=== PATIENT | male | born 1950 | race Caucasian/White ===

== ENCOUNTER 2019-03-16 13:54 | Emergency (ER) | payer MEDICARE, BC ==
--- NOTE | 2019-03-16 14:01 | ER Document Report ---
ED Medical Screen (RME) - General Chief Complaint: General Weakness Stated Complaint: POSSIBLE STROKE Time Seen by Provider: 03/16/19 13:58 Mode of Arrival: Ambulatory Information source: Patient, Relative Notes: 68-year-old male presents to ED for complaint of weakness neurological changes and confusion for the past week. states that he called her at work and told her that he had no use of his right hand he was weak and shaking. He does have shaking to his right hand. He does not have any palmar drift, he is alert and oriented, he does not have any facial droop. He does have some short-term memory but states this is not new. She states that all the symptoms started Friday night and is gotten progressively worse. According to the told her today that it is been going on longer than that. I have greeted and performed a rapid initial assessment of this patient. A comprehensive ED assessment and evaluation of the patient, analysis of test results and completion of medical decision making process will be conducted by an additional ED providers. - Related Data Allergies/Adverse Reactions: No Known Allergies Allergy (Verified 03/16/19 13:57)
--- NOTE | 2019-03-16 14:39 | ER Document Report ---
ED General - General Chief Complaint: General Weakness Stated Complaint: POSSIBLE STROKE Time Seen by Provider: 03/16/19 13:58 Primary Care Provider: ERIN DE PAZ MD [Primary Care Provider] - Follow up tomorrow Mode of Arrival: Ambulatory Notes: Called to room for possible stroke 68-year-old male with a history of hypertension hyperlipidemia presents with right arm weakness. First noticed this morning at about 1030 and got worse when he was trying to make breakfast and could not get the spoon to his mouth. Also had some shaking in the right arm. He also had some right cheek numbness at that time and says it is improved over the last hour. Per his this may be happening all week and is just not telling it. No speech problems memory issues or confusion no fever or UTI symptoms. - Related Data Allergies/Adverse Reactions: No Known Allergies Allergy (Verified 03/16/19 13:57) Past Medical History - General Information source: Patient, Relative - Social History Smoking Status: Never Smoker Drug Abuse: None Family History: None Patient has suicidal ideation: No Patient has homicidal ideation: No Physical Exam - Vital signs Vitals: Pulse Resp BP Pulse Ox 89 20 180/75 H 100 03/16/19 14:01 03/16/19 14:01 03/16/19 14:01 03/16/19 14:01 Course - Re-evaluation Re-evalutation: 03/16/19 18:42 Patient presents with transient right arm weakness going on for a few days as well as new tremor. His neuro exam in the ER is normal with no lateralizing deficits and he does have a tremor CT negative labs negative No A. fib on EKG Discussed with Dr. Gibson for admissionDr. 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 Thompson as of 640 says they are negative will recommend discharge I will attempt to refer the patient to neurology. I have discussed with the patient there likely diagnosis, aftercare plan, follow-up plans and my usual and customary return precautions. They verbalized understanding of this. - Vital Signs Vital signs: Temp Pulse Resp BP Pulse Ox 98.2 F 76 18 134/88 H 98 03/16/19 19:51 03/16/19 19:51 03/16/19 19:51 03/16/19 19:51 03/16/19 18:01 - Laboratory Result Diagrams: 03/16/19 14:35 03/16/19 14:35 Laboratory results interpreted by me: 03/16/19 03/16/19 03/16/19 14:35 14:35 14:45 Lymph % (Auto) 9.1 L Seg Neutrophils % 82.9 H Sodium 136.0 L Chloride 97 L BUN 25 H Glucose 121 H POC Glucose 129 H - Diagnostic Test Radiology reviewed: Image reviewed, Reports reviewed Discharge - Discharge Clinical Impression: Transient ischemic attack (TIA), Tremor Condition: Good Disposition: HOME, SELF-CARE Unit Admitted: Post Additional Instructions: Your evaluated in the emergency room today for stroke tremor weakness and TIA. We think her presentation is most concerning for a movement disorder like Parkinson's rather than stroke, and your ultrasounds CAT scans and labs were normal. If your tremor worsens or you get any 1sided neurologic symptoms please return to the ER immediately. Follow-up with your doctor tomorrow as scheduled and ask for referral to neurology. Referrals: ERIN DE PAZ MD [Primary Care Provider] - Follow up tomorrow
[2019-03-16 14:57] LABS: PROTHROMBIN TIME 13.1 SEC (11.4-15.4)
[2019-03-16 14:58] LABS: PARTIAL THROMBOPLASTIN TIME 26.6 SEC (23.5-35.8)
[2019-03-16 15:04] LABS: ABSOLUTE LYMPHOCYTES (AUTO) 0.8 10^3/uL (0.5-4.7); ABSOLUTE MONOCYTES (AUTO) 0.6 10^3/uL (0.1-1.4); ABSOLUTE NEUT (AUTO) 7.1 10^3/uL (1.7-8.2); BASOPHILS % (AUTO) 0.4 % (0-2); EOSINOPHILS % (AUTO) 0.5 % (0-6); HEMATOCRIT 41.5 % (37.9-51.0); HEMOGLOBIN 14.9 g/dL (13.5-17.0); LYMPHOCYTES % (AUTO) 9.1 % (13-45); MEAN CORPUSCULAR HEMOGLOBIN 32.7 pg (27.0-33.4); MEAN CORPUSCULAR HGB CONC 35.8 g/dL (32.0-36.0); MEAN CORPUSCULAR VOLUME 92 fl (80-97); MONOCYTES % (AUTO) 7.1 % (3-13); PLATELET COUNT 246 10^3/uL (150-450); RED BLOOD COUNT 4.54 10^6/uL (4.35-5.55); RED CELL DISTRIBUTION WIDTH 11.9 % (11.5-14.0); SEGMENTED NEUTROPHILS % (AUTO) 82.9 % (42-78); TOTAL CELLS COUNTED % (AUTO) 100 %; WHITE BLOOD COUNT 8.6 10^3/uL (4.0-10.5)
--- NOTE | 2019-03-16 15:07 | RADIOLOGY REPORT (SQ) ---
EXAM DESCRIPTION: CT HEAD WITHOUT COMPLETED DATE/TIME: 03/16/2019 2:58 pm REASON FOR STUDY: Neurological changes since Friday weakness COMPARISON: None. TECHNIQUE: Axial images acquired through the brain without intravenous contrast. Images reviewed wi th bone, brain and subdural windows. Additional sagittal and coronal reconstructions were generated. Images stored on PACS. All CT scanners at this facility use dose modulation, iterative reconstruction, and/or weight based d osing when appropriate to reduce radiation dose to as low as reasonably achievable (ALARA). [facility]: Dose Right [facility]: CareDose [facility]: Dose Right [facility]: Teradose 4D [facility]: [employer] RADIATION DOSE: CT Rad equipment meets quality standard of care and radiation dose reduction techniq ues were employed. CTDIvol: 53.2 mGy. DLP: 1124 mGy-cm. mGy. LIMITATIONS: None. FINDINGS: VENTRICLES: Normal size and contour. CEREBRUM: No masses. No hemorrhage. No midline shift. No evidence for acute infarction. Normal gra y/white matter differentiation. No areas of low density in the white matter. CEREBELLUM: No masses. No hemorrhage. No alteration of density. No evidence for acute infarction. EXTRAAXIAL SPACES: No fluid collections. No masses. ORBITS AND GLOBE: No intra- or extraconal masses. Normal contour of globe without masses. CALVARIUM: No fracture. PARANASAL SINUSES: No fluid or mucosal thickening. SOFT TISSUES: No mass or hematoma. OTHER: No other significant finding. IMPRESSION: NORMAL BRAIN CT WITHOUT CONTRAST. EVIDENCE OF ACUTE STROKE: NO. COMMENT: Quality ID # [id number]: Final reports with documentation of one or more dose reduction techniques (e.g., Automated exposure control, adjustment of the mA and/or kV according to patient size, use of iterative reconstruction technique) TECHNICAL DOCUMENTATION: JOB ID: [id number] [employer]- All Rights Reserved Reading location - IP/workstation name: [email or web address]
[2019-03-16 15:11] LABS: ALBUMIN 4.5 g/dL (3.5-5.0); ALKALINE PHOSPHATASE 77 U/L (38-126); ANION GAP 11 (5-19); ASPARTATE AMINO TRANSFERASE 25 U/L (17-59); BILIRUBIN,DIRECT 0.4 mg/dL (0.0-0.4); BILIRUBIN,TOTAL 0.8 mg/dL (0.2-1.3); BLOOD UREA NITROGEN 25 mg/dL (7-20); CALCIUM 9.9 mg/dL (8.4-10.2); CARBON DIOXIDE 28 mmol/L (22-30); CHLORIDE 97 mmol/L (98-107); CREATINE KINASE 108 U/L (55-170); GLUCOSE 121 mg/dL (75-110); POTASSIUM 4.1 mmol/L (3.6-5.0); TOTAL PROTEIN 7.4 g/dL (6.3-8.2)
--- NOTE | 2019-03-16 15:20 | RADIOLOGY REPORT (SQ) ---
EXAM DESCRIPTION: CHEST SINGLE VIEW COMPLETED DATE/TIME: 03/16/2019 2:59 pm REASON FOR STUDY: Neurological changes since Friday weakness COMPARISON: None. NUMBER OF VIEWS: One view. TECHNIQUE: Single frontal radiographic view of the chest acquired. LIMITATIONS: None. FINDINGS: LUNGS AND PLEURA: No opacities, masses or pneumothorax. No pleural effusion. MEDIASTINUM AND HILAR STRUCTURES: No masses. Contour normal. HEART AND VASCULAR STRUCTURES: Heart normal in size. Normal vasculature. BONES: No acute findings. HARDWARE: None in the chest. OTHER: No other significant finding. IMPRESSION: NO SIGNIFICANT RADIOGRAPHIC FINDING IN THE CHEST. TECHNICAL DOCUMENTATION: JOB ID: [id number] [employer]- All Rights Reserved Reading location - IP/workstation name: [email or web address]
[2019-03-16 15:23] LABS: CREATINE KINASE MB 1.29 ng/mL (<4.55); TROPONIN I < 0.012 ng/mL
--- NOTE | 2019-03-16 17:04 | PDOC CONSULTATION ---
Consultation Consult Date: 03/16/19 Attending physician:: TAMAR SHIELDS Provider Consulted: QUANG GOTTI Consult reason:: ? 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 Patient stated that his episodes started last month. acknowledges that patient has had recurrent episodes on Friday, Friday and today again. These episodes have lasted only a few minutes but in this situation lasted about 10 to 15 minutes. At that time, patient was holding a spoon in his hand when he started to have rhythmic tremors with sudden weakness of it service technician strength. Patient denies any other neurological symptoms at that time. Symptoms are currently resolved. Of note he has had several episodes over the past month but none prior to January. Endorses family history of tremors in his mother and his grandfather. Patient and patient's also note that patient has been exhibit ing increased sluggishness in his walking and gait as well as mild forgetfulness since last summer. Patient states he walks slowly to prevent himself from falling. Patient denies any prior history of strokes or TIAs. Past Medical History Cardiac Medical History: Reports: Hyperlipidema, Hypertension Past Surgical History Past Surgical History: Reports: None Social History Information Source: Patient Lives with: Spouse/Significant other Smoking Status: Never Smoker Electronic Cigarette use?: No Frequency of Alcohol Use: None Hx Recreational Drug Use: No Family History Family History: Other Family History: Malignancy, tremors in grandfather and mother, seizures Parental Family History Reviewed: Yes Children Family History Reviewed: NA Sibling(s) Family History Reviewed.: Yes Medication/Allergy Home Medications: Benazepril HCl [Lotensin 10 mg Tablet] 10 mg PO QPM 03/16/19 Pravastatin Sodium 10 mg PO QPM 03/16/19 Allergies/Adverse Reactions: No Known Allergies Allergy (Verified 03/16/19 13:57) Review of Systems Constitutional: ABSENT: fatigue, fever(s), night sweats Eyes: ABSENT: visual disturbances Nose, Mouth, and Throat: ABSENT: vertigo Cardiovascular: ABSENT: chest pain Respiratory: ABSENT: dyspnea Gastrointestinal: ABSENT: abdominal pain Genitourinary: PRESENT: nocturia. ABSENT: difficulty urinating Musculoskeletal: ABSENT: back pain, joint swelling, muscle weakness Integumentary: ABSENT: diaphoresis Neurological: PRESENT: abnormal gait - Sluggish, abnormal movements, memory loss, tremor(s). ABSENT: abnormal speech, confusion, convulsions, dizziness, numbness, paresthesias, tingling, vertigo, weakness Psychiatric: ABSENT: anxiety Endocrine: ABSENT: cold intolerance Physical Exam Vital Signs: Temp Pulse Resp BP Pulse Ox 97.7 F 88 18 174/78 H 98 03/16/19 14:09 03/16/19 14:09 03/16/19 14:09 03/16/19 14:09 03/16/19 14:09 Intake & Output 03/15/19 03/16/19 03/17/19 06:59 06:59 06:59 Weight 72.2 kg General appearance: PRESENT: no acute distress, cooperative Head exam: PRESENT: normocephalic Eye exam: PRESENT: EOMI, PERRLA. ABSENT: nystagmus, scleral icterus Neck exam: ABSENT: JVD Respiratory exam: PRESENT: clear to auscultation addi, unlabored. ABSENT: tachypnea, wheezes Cardiovascular exam: PRESENT: RRR, +S1, +S2. ABSENT: tachycardia Vascular exam: ABSENT: pallor GI/Abdominal exam: PRESENT: soft. ABSENT: rebound, rigid, tenderness Extremities exam: ABSENT: calf tenderness, pedal edema Musculoskeletal exam: PRESENT: ambulatory Neurological exam: PRESENT: alert, awake, oriented to person, oriented to place, oriented to time, oriented to situation, abnormal gait - Sluggish gait and mildly stooped forward. ABSENT: ataxia, CN II-XII grossly intact, motor sensory deficit, aphasic Psychiatric exam: ABSENT: agitated, anxious Focused psych exam: ABSENT: pressured speech Skin exam: ABSENT: jaundice Results Laboratory Results: 03/16/19 14:35 03/16/19 14:35 03/16/19 03/16/19 14:35 14:35 WBC 8.6 RBC 4.54 Hgb 14.9 Hct 41.5 MCV 92 MCH 32.7 MCHC 35.8 RDW 11.9 Plt Count 246 Seg Neutrophils % 82.9 H Sodium 136.0 L Potassium 4.1 Chloride 97 L Carbon Dioxide 28 Anion Gap 11 BUN 25 H Creatinine 0.90 Est GFR ( Amer) > 60 Glucose 121 H Calcium 9.9 Total Bilirubin 0.8 AST 25 Alkaline Phosphatase 77 Total Protein 7.4 Albumin 4.5 03/16/19 03/16/19 14:35 14:35 Creatine Kinase 108 CK-MB (CK-2) 1.29 Troponin I < 0.012 Impressions: Chest X-Ray 03/16/19 14:01 IMPRESSION: NO SIGNIFICANT RADIOGRAPHIC FINDING IN THE CHEST. Head CT 03/16/19 14:01 IMPRESSION: NORMAL BRAIN CT WITHOUT CONTRAST. EVIDENCE OF ACUTE STROKE: NO. Assessment and Plan - Diagnosis (1) Tremor of right hand Is this a current diagnosis for this admission?: Yes (2) Decreased it service technician strength of right hand Is this a current diagnosis for this admission?: Yes (3) Hypertension Qualifiers: Hypertension type: essential hypertension Qualified Code(s): I10 - Essential (primary) hypertension Is this a current diagnosis for this admission?: Yes (4) Hyperlipidemia Qualifiers: Hyperlipidemia type: unspecified Qualified Code(s): E78.5 - Hyperlipidemia, unspecified Is this a current diagnosis for this admission?: Yes - Plan Summary Summary: -Patient had transient episode of right hand tremor associated with transient right it service technician weakness lasting 10 to 15 minutes. This is the most recent of several episodes that have happened over the past month. Patient also notably has some bradykinesia when ambulating on my assessment. Hospitalist service consulted with question of admission for possible TIA. -I have assessed patient and suspect that patient's symptoms is less likely be TIA. I believe the decreased it service technician strength was simply associated with his episode of significant tremulousness of his right hand which has resolved. -Also, patient has significant family history of tremors in his mother and his grandfather who, after I mentioned the possibility of new onset of Parkinson's, patient and patient's acknowledged to me that his grandfather was also suspected to have Parkinson's disease by his provider. -Patient's tremors likely 2/2 new-onset Parkinsons vs essential vs another motor neuron disease and needs evaluation by a Neurologist which we do not have in this hospital. -At this moment I recommend checking carotid ultrasound to rule out carotid stenosis. -If no evidence of significant carotid stenosis on ultrasound, patient will not need to be admitted to the hospitalist service as TIA is less likely the cause of patient's current transient hand tremors and decreased it service technician strength. -Resume patient's antihypertensive medication and continue patient's statin and aspirin -Patient has a follow-up appointment with his primary care provider tomorrow. - Time Time Spent with patient: 35 or more minutes
--- NOTE | 2019-03-16 18:46 | RADIOLOGY REPORT (SQ) ---
EXAM DESCRIPTION: CAROTID DOPPLER COMPLETED DATE/TIME: 03/16/2019 6:28 pm REASON FOR STUDY: right hand tremors, hand interior designer weak,?tia COMPARISON: CT brain 03/16/2019 TECHNIQUE: Grayscale ultrasound, Doppler velocity and spectra, and color Doppler images acquired of the extra-cranial carotid and vertebral arteries. Images stored on PACS. LIMITATIONS: None. FINDINGS: RIGHT CAROTID CCA Velocities: 1.96 m/sec peak systolic velocity ICA Velocities Peak systolic 1.4 m/s. End diastolic 0.2 m/s. Proximal ICA/CCA peak systolic ratio 0.9. Spectra normal. No significant calcific plaque. LEFT CAROTID CCA Velocities: 1.6 m/sec peak systolic velocity ICA Velocities Peak systolic 1.3 m/s. End diastolic 0.25 m/s. Proximal ICA/CCA peak systolic ratio 0.9. Spectra normal. Mixed calcific and noncalcific plaque is present at the left carotid bifurcation wit hout flow significant stenosis VERTEBRAL ARTERIES: Antegrade flow. Normal waveforms. SUBCLAVIAN ARTERIES: Not evaluated OTHER: Findings discussed with Dr. Reese IMPRESSION: NO HEMODYNAMICALLY SIGNIFICANT STENOSIS. COMMENT: Quality ID #[id number]: Velocity criteria are extrapolated from the diameter data as defined by t he Society of Radiologists in Ultrasound Consensus Conference. Radiology 2003: 229; 340-346. TECHNICAL DOCUMENTATION: JOB ID: [id number] [employer]- All Rights Reserved Reading location - IP/workstation name: [email or web address]
[2019-03-16 19:52] VITALS: BP 134/88
--- NOTE | 2019-03-17 14:27 | EKG REPORT ---
SEVERITY:- OTHERWISE NORMAL ECG - SINUS RHYTHM BORDERLINE RIGHT AXIS DEVIATION : Confirmed by: Sabino Sears 17-Mar-2019 14:26:42
== END 2019-03-16 19:52 | disposition home or self-care (01) ==
LOC: ER 13:54 → UNDOADMOB 16:11 → EH 16:11 → ER 19:52
DX: G45.9 Transient cerebral ischemic attack, unspecified (principal); R25.1 Tremor, unspecified; M62.81 Muscle weakness (generalized); I10 Essential (primary) hypertension
CPT/HCPCS: 36415; 70450; 71045; 80053; 82550; 82553; 82962; 84484; 85025; 85610; 85730; 93005; 93010; 93880; 99285